=== PATIENT | female | born 1955 | race Caucasian/White ===

== ENCOUNTER 2017-02-12 19:58 | Emergency (ER) | payer BC, MEDICARE ==
[2017-02-12 20:13] VITALS: BP 120/71
--- NOTE | 2017-02-12 20:28 | EDM.PDOC ---
ED HPI GENERAL MEDICAL PROBLEM - General Chief Complaint: Lower Extremity Injury/Pain Stated Complaint: Foot pain Time Seen by Provider: 02/12/17 20:20 Source of Information: Reports: Patient, RN Notes Reviewed History Limitations: Reports: No Limitations - History of Present Illness INITIAL COMMENTS - FREE TEXT/NARRATIVE: 61 year old female presents to the ED with pain, bruising, and swelling to the lateral aspect of her right foot. The pain started after she rolled her ankle earlier today. She has pain with bearing weight. No numbness or tingling. No open skin wounds. Treatments RUBBER TUBING SPLICER: Reports: NSAIDS Right Feet Pain Score (Numeric/FACES): 2 - Related Data Allergies Allergy/AdvReac Type Severity Reaction Status Date / Time codeine Allergy Chest Verified 02/12/17 20:13 Presssure adhesive tape Allergy Itching Uncoded 02/12/17 20:13 novocaine Allergy Swelling Uncoded 02/12/17 20:13 Home Meds: Home Meds Atenolol. 1 tab PO DAILY 03/10/14 [History] Diovan. 1 tab PO DAILY 03/10/14 [History] Flexeril. 10 mg PO Q8HR PRN 03/10/14 [History] Gabapentin. 600 mg PO BID 03/10/14 [History] Omeprazole. 20 mg PO BID 03/10/14 [History] Sertraline. 1 tab PO DAILY 03/10/14 [History] Past Medical History HEENT History: Reports: Impaired Vision Cardiovascular History: Reports: Heart Murmur Other Cardiovascular History: heart cath as a baby Gastrointestinal History: Reports: GERD Other OB/BYN History: tubal ligation Other Musculoskeletal History: spinal stenosis and disc degeneration Psychiatric History: Reports: Addiction, Anxiety, Depression Immunologic History: Reports: Other (See Below) Other Immunologic History: Hep C - Past Surgical History HEENT Surgical History: Reports: Tonsillectomy Social & Family History - Family History Family Medical History: Noncontributory - Tobacco Use Smoking Status *Q: Never Smoker Second Hand Smoke Exposure: Yes - Caffeine Use Caffeine Use: Reports: None - Alcohol Use Days Per Week of Alcohol Use: 0 - Recreational Drug Use Recreational Drug Use: Yes Drug Use in Last 12 Months: Yes Recreational Drug Type: Reports: Marijuana/Hashish Recreational Drug Last Use: 2 days ago Review of Systems - Review of Systems Review Of Systems: See Below Musculoskeletal: Reports: Foot Pain, Joint Pain, Joint Swelling Skin: Reports: Bruising. Denies: Wound Neurological: Reports: No Symptoms. Denies: Numbness, Tingling ED EXAM, GENERAL - Physical Exam Exam: See Below Exam Limited By: No Limitations General Appearance: Alert, WD/WN, No Apparent Distress Extremities: Other (swelling and tenderness to lateral aspect of right foot. CMS intact. Ankle exam is normal.) Neurological: No Motor/Sensory Deficits Skin Exam: Warm, Dry, Intact, Other (bruising to right foot. ) Course - Vital Signs Last Recorded V/S: Last Vital Signs Temp 97.7 F 02/12/17 20:09 Pulse 75 02/12/17 20:09 Resp 16 02/12/17 20:09 BP 120/71 02/12/17 20:09 Pulse Ox 97 02/12/17 20:09 - Orders/Labs/Meds Orders: Active Orders 24 hr Category Date Time Status Foot Comp Min 3V Rt [CR] Stat Exams 02/12/17 20:27 Ordered - Re-Assessments/Exams Free Text/Narrative Re-Assessment/Exam: X-ray reveals non-displaced fracture to distal shaft of the 5th metatarsal. Patient will be placed in a walking boot and crutches with instructions to remain non-weight bearing. We have no ortho coverage. She can follow-up with ortho next week. Tramadol 50mg tabs, 1-2 tabs every 4-6 hours PRN for pain, #30 sent to [facility]. Departure - Departure Time of Disposition: 20:54 Disposition: Home, Self-Care 01 Condition: Good Clinical Impression: Metatarsal stress fracture of right foot Qualifiers: Encounter type: initial encounter Qualified Code(s): M84.374A - Stress fracture , right foot, initial encounter for fracture - Discharge Information Instructions: Metatarsal Fracture Referrals: Mayra Nesbitt MD [Primary Care Provider] - Forms: ED Department Discharge Additional Instructions: Walking boot at all times, only remove to shower Rest, ice and elevate No weight bearing, use crutches Tramadol 1-2 tabs every 4-6 hours as needed for pain Follow-up with one of our orthopedic surgeons next week, call their offices to schedule 1. Dr. Grullon [phone] Brizuela [phone] - My Orders Last 24 Hours: My Active Orders 02/12/17 20:27 Foot Comp Min 3V Rt [CR] Stat - Assessment/Plan Last 24 Hours: My Active Orders 02/12/17 20:27 Foot Comp Min 3V Rt [CR] Stat
--- NOTE | 2017-02-13 08:04 | CR ---
Right foot: Four views of the right foot were obtained. Oblique fracture identified within the distal shaft of the right fifth metatarsal. Alignment is close to anatomic. Small plantar spur is seen. No additional fracture or other abnormality is appreciated. Impression: 1. Fifth metatarsal fracture. 2. Small plantar spur. Diagnostic code #3
== END 2017-02-12 21:10 | disposition home or self-care (01) ==
LOC: JD.ED 19:58
DX: M84.374A Stress fracture, right foot, initial encounter for fracture (principal); K21.9 Gastro-esophageal reflux disease without esophagitis; F41.9 Anxiety disorder, unspecified; F32.9 Major depressive disorder, single episode, unspecified; Z98.890 Other specified postprocedural states; Z98.51 Tubal ligation status; Z79.899 Other long term (current) drug therapy; Z88.5 Allergy status to narcotic agent; Z88.6 Allergy status to analgesic agent; X50.9XXA Other and unspecified overexertion or strenuous movements or postures, initial encounter
CPT/HCPCS: 73630-26-RT; 73630-RT; 99283

== ENCOUNTER 2018-03-24 11:19 | Emergency (ER) | payer BC, MEDICARE ==
[2018-03-24] MEDS ORDERED: Acetaminophen 325 MG Tab PO ONE (11:38)
[2018-03-24] MEDS ORDERED: oxyCODONE 5 MG Tab PO ONE (11:38)
--- NOTE | 2018-03-24 11:44 | EDM.PDOC ---
ED HPI GENERAL MEDICAL PROBLEM - General Chief Complaint: Upper Extremity Injury/Pain Stated Complaint: WRIST INJURY FROM FALL Time Seen by Provider: 03/24/18 11:32 Source of Information: Reports: Patient History Limitations: Reports: No Limitations - History of Present Illness INITIAL COMMENTS - FREE TEXT/NARRATIVE: 62 y F patient presents with left wrist pain. Just prior to presentation she was walking backwards with her arm extended and thumb out, fell then broke her fall with the left hand. [place]ison immediate left wrist and thumb pain, moderate to severe intensity, worse with movement and palpation, better with rest. Left Wrist Pain Score (Numeric/FACES): 1 - Related Data Allergies Allergy/AdvReac Type Severity Reaction Status Date / Time codeine Allergy Chest Verified 02/12/17 20:13 Presssure adhesive tape Allergy Itching Uncoded 02/12/17 20:13 novocaine Allergy Swelling Uncoded 02/12/17 20:13 Home Meds: Home Meds Atenolol. 1 tab PO DAILY 03/10/14 [History] Flexeril. 10 mg PO Q8HR PRN 03/10/14 [History] Gabapentin. 600 mg PO BID 03/10/14 [History] Omeprazole. 20 mg PO BID 03/10/14 [History] Sertraline. 50 mg PO DAILY 03/10/14 [History] buPROPion [Wellbutrin] 75 mg PO DAILY 03/24/18 [History] oxyCODONE 5 mg PO QID PRN #15 tab 03/24/18 [Rx] Past Medical History HEENT History: Reports: Impaired Vision Cardiovascular History: Reports: Heart Murmur Other Cardiovascular History: heart cath as a baby Gastrointestinal History: Reports: GERD Other MANAGER RESPIRATORY History: tubal ligation Other Musculoskeletal History: spinal stenosis and disc degeneration Psychiatric History: Reports: Addiction, Anxiety, Depression Immunologic History: Reports: Other (See Below) Other Immunologic History: Hep C - Past Surgical History HEENT Surgical History: Reports: Tonsillectomy Social & Family History - Family History Family Medical History: Noncontributory - Tobacco Use Smoking Status *Q: Never Smoker - Caffeine Use Caffeine Use: Reports: Soda, Tea - Recreational Drug Use Recreational Drug Type: Reports: Marijuana/Hashish Other Recreational Drug Type: last used last noc-uses daily Review of Systems - Review of Systems Review Of Systems: See Below Constitutional: Reports: No Symptoms Eyes: Reports: No Symptoms Mouth/Throat: Reports: No Symptoms Respiratory: Reports: No Symptoms Cardiovascular: Reports: No Symptoms GI/Abdominal: Reports: No Symptoms Musculoskeletal: Reports: Other (left wrist pain) Skin: Reports: No Symptoms Neurological: Reports: No Symptoms Psychiatric: Reports: No Symptoms ED EXAM, GENERAL - Physical Exam Exam: See Below Exam Limited By: No Limitations General Appearance: Alert, No Apparent Distress Respiratory/Chest: No Respiratory Distress, Lungs Clear Cardiovascular: Normal Peripheral Pulses, Regular Rate, Rhythm GI/Abdominal: Soft, Non-Tender Back Exam: Normal Inspection, Full Range of Motion, Other (Midline cervical thoracic or lumbar spinal tenderness palpation) Extremities: Other (Left hand and wrist: TTP in the anatomical snuff box, good cap refill distally, sensation intact in all dermatomes. ) Neurological: Alert, Oriented, CN II-XII Intact, Normal Cognition, No Motor/ Sensory Deficits Skin Exam: Warm, Dry, Intact Course - Vital Signs Last Recorded V/S: Last Vital Signs Temp 36.1 C 03/24/18 13:19 Pulse 58 L 03/24/18 13:19 Resp 18 03/24/18 13:19 BP 158/86 H 03/24/18 13:19 Pulse Ox 98 03/24/18 13:19 - Orders/Labs/Meds Orders: Active Orders 24 hr Category Date Time Status Hand 2V Lt [CR] Stat Exams 03/24/18 11:37 Taken Wrist Comp Min 3V Lt [CR] Stat Exams 03/24/18 11:37 Taken Meds: Medications Discontinued Medications Generic Name Dose Route Start Last Admin Trade Name Daly PRN Reason Stop Dose Admin Acetaminophen 975 mg 03/24/18 11:38 03/24/18 12:10 Tylenol PO 03/24/18 11:39 Not Given NOW ONE Oxycodone HCl 5 mg 03/24/18 11:38 03/24/18 12:08 Oxycodone PO 03/24/18 11:39 5 mg ONETIME ONE Administration - Re-Assessments/Exams Free Text/Narrative Re-Assessment/Exam: 03/24/18 62-year-old female presenting [facility] Plain films by my interpretation show no fracture of the scaphoid or other carpal bones. She is not tender along the radius at all so no dedicated films were obtained. The patient persisted to be tender in the anatomic snuffbox. Therefore she was placed in a thumb spica splint and directed follow-up with Dr. kaylah Alvarez machine stone polisher apprentice orthopedic surgeon for repeat films in 7-10 days. Patient was advised that if she does have a scaphoid fracture there is some risk of nonunion/malunion and in worst-case nurse necrosis of the bone. Is for this reason that she is being immobilized in a thumb spica splint. If at anytime she has signs concerning for compartment syndrome she knows to return. Given return precautions. Discharged home in good condition. So given a prescription for a small amount of oxycodone for breakthrough pain. Departure - Departure Time of Disposition: 12:47 Disposition: Refer to Observation Condition: Good Clinical Impression: Wrist pain Qualifiers: Laterality: left Qualified Code(s): M25.532 - Pain in left wrist - Discharge Information *PRESCRIPTION DRUG MONITORING PROGRAM REVIEWED*: No *COPY OF PRESCRIPTION DRUG MONITORING REPORT IN PATIENT BERT: No Prescriptions: oxyCODONE 5 mg PO QID PRN #15 tab PRN Reason: Pain Instructions: Wrist Pain, Adult, [id number] Referrals: Mayra Nesbitt MD [Primary Care Provider] - Forms: ED Department Discharge Additional Instructions: You were seen today for left wrist pain after a fall. At this time there is no obvious fracture on your xray. Follow up with Dr Grullon in 7-10 days for repeat xrays to see if there is a fracture that we cannot see today. His office number is [phone]. Return to the ED if you have any numbness or discoloration of your fingertips or you have severe pain that will ntoimprove. - My Orders Last 24 Hours: My Active Orders 03/24/18 11:37 Hand 2V Lt [CR] Stat Wrist Comp Min 3V Lt [CR] Stat - Assessment/Plan Last 24 Hours: My Active Orders 03/24/18 11:37 Hand 2V Lt [CR] Stat Wrist Comp Min 3V Lt [CR] Stat
[2018-03-24 13:20] VITALS: BP 158/86
--- NOTE | 2018-03-25 06:45 | CR ---
Left hand: Two views of the left hand were obtained. Comparison: No prior left hand exam. Joint spaces are preserved. No fracture, dislocation or other bony abnormality is seen. Impression: 1. No abnormality is appreciated on two-view left hand exam. Diagnostic code #1
--- NOTE | 2018-03-25 06:45 | CR ---
Left wrist: Four views of the left wrist were obtained. Comparison: No prior wrist exam. Joint spaces are preserved. Slight cystic change is noted within the distal navicular bone which is felt to be incidental. No fracture, dislocation or other bony abnormality is seen. Impression: 1. Slight cystic change. No additional abnormality is appreciated on left wrist exam. Diagnostic code #2
== END 2018-03-24 13:23 | disposition other institution (70) ==
LOC: JD.ED 11:19
DX: M25.532 Pain in left wrist (principal); Z88.5 Allergy status to narcotic agent; Z91.09 Other allergy status, other than to drugs and biological substances; W19.XXXA Unspecified fall, initial encounter
CPT/HCPCS: 29125; 73110; 73120; 99283; A9270

== ENCOUNTER 2019-03-29 06:56 | Day surgery (SDC) | payer BC, MEDICARE ==
[~2019-03-29 06:56] MED LIST: Lidocaine 1%/Sod Bicarbonate in NS 8.4% 1 ML Syringe IDERM PRN; Sodium Chloride 0.9% 10 ML Syringe FLUSH PRN
--- NOTE | 2019-03-29 08:08 | PCM.PREANE ---
Preanesthetic Assessment - Procedure Proposed Procedure: EGD - Anesthesia/Transfusion/Family Hx Anesthesia History: Prior Anesthesia Without Reaction Family History of Anesthesia Reaction: Yes (nausea/vomitting in mother) Transfusion History: Prior Transfusion Without Reaction Intubation History: Unknown - Review of Systems General: Other (chronic cough ) Pulmonary: Cough Cardiovascular: No Symptoms Gastrointestinal: No Symptoms Neurological: No Symptoms Other: Reports: Depression, Anxiety - Physical Assessment NPO Status Date: 03/28/19 NPO Status Time: 22:30 Height: 1.63 m Weight: 63.3 kg ASA Class: 2 Mental Status: Alert & Oriented x3 Airway Class: Mallampati = 1 Dentition: Reports: Normal Dentition Thyro-Mental Finger Breadths: 3 Mouth Opening Finger Breadths: 5 ROM/Head Extension: Full Lungs: Clear to Auscultation, Normal Respiratory Effort Cardiovascular: Regular Rate, Regular Rhythm - Allergies Allergies/Adverse Reactions: Allergies Allergy/AdvReac Type Severity Reaction Status Date / Time adhesive tape Allergy Itching Verified 03/28/19 16:54 codeine Allergy Chest Verified 03/28/19 16:54 Presssure procaine [From Novocain] Allergy Swelling Verified 03/28/19 16:54 - Blood Blood Available: No - Anesthesia Plan Pre-Op Medication Ordered: None - Acknowledgements Anesthesia Type Planned: MAC Pt an Appropriate Candidate for the Planned Anesthesia: Yes Alternatives and Risks of Anesthesia Discussed w Pt/Guardian: Yes Pt/Guardian Understands and Agrees with Anesthesia Plan: Yes PreAnesthesia Questionnaire HEENT History: Reports: Impaired Vision Cardiovascular History: Reports: Heart Murmur, Hypertension Other Cardiovascular History: heart cath as a baby Respiratory History: Reports: None Gastrointestinal History: Reports: Cirrhosis, Colon Polyp, Gastritis, GERD, Hemorrhoids, Hepatitis Other Gastrointestinal History: esophageal varices, hepatic encephalopathy, Hep C, cirrohcis, gastritis, portal hypertensive gastropathy, abdominal pain Genitourinary History: Reports: None Other OB/BYN History: tubal ligation, , cervical cancern Musculoskeletal History: Reports: Back Pain, Chronic, Neck Pain, Chronic Other Musculoskeletal History: spinal stenosis and lumbar disc degeneration, myofascial pain Neurological History: Reports: Other (See Below) Other Neuro History: radiculopathy, lumbar degenerative disc disease Psychiatric History: Reports: Addiction, Anxiety, Depression Endocrine/Metabolic History: Reports: None Hematologic History: Reports: None Immunologic History: Reports: Other (See Below) Other Immunologic History: Hep C Oncologic (Cancer) History: Reports: Malignant Melanoma Dermatologic History: Reports: Other (See Below) Other Dermatologic History: right skin cancer excision - Infectious Disease History Infectious Disease History: Reports: Chicken Pox, Hepatitis C, Measles - Past Surgical History Head Surgeries/Procedures: Reports: None HEENT Surgical History: Reports: Adenoidectomy, Tonsillectomy Cardiovascular Surgical History: Reports: None Respiratory Surgical History: Reports: None GI Surgical History: Reports: Colonoscopy, EGD, Hernia Repair/Other Female Surgical History: Reports: Cervical Cryotherapy, Tubal Ligation Male Surgical History: Reports: None Endocrine Surgical History: Reports: None Neurological Surgical History: Reports: None Musculoskeletal Surgical History: Reports: Carpal Tunnel Oncologic Surgical History: Reports: Other (See Below) Other Oncologic Surgeries/Procedures: facial surgery to remove melanoma Dermatological Surgical History: Reports: None - SUBSTANCE USE Smoking Status *Q: Former Smoker Recreational Drug Use History: Yes Recreational Drug Type: Reports: Marijuana/Hashish - HOME MEDS Home Medications: Home Meds Atenolol 25 mg PO DAILY 03/28/19 [History] Lidocaine 5% [Lidoderm 5%] 1 dose TOP DAILY 03/28/19 [History] Polyethylene Glycol 3350 [MiraLAX] 17 gm PO DAILY 03/28/19 [History] Sertraline HCl 50 mg PO DAILY 03/28/19 [History] buPROPion HCl [Wellbutrin SR] 150 mg PO DAILY 03/28/19 [History] - CURRENT (IN HOUSE) MEDS Current Meds: Current Medications Lactated Ringer's (Ringers, Lactated) 1,000 mls @ 125 mls/hr IV ASDIRECTED GRICELDA Stop: 03/29/19 23:00 Lidocaine/Sodium Bicarbonate (Buffered Lidocaine 1% In Ns 8.4%) 0.25 ml IDERM ONETIME PRN PRN Reason: Prior to IV Start Stop: 03/29/19 18:00 Sodium Chloride (Saline Flush) 10 ml FLUSH ASDIRECTED PRN PRN Reason: Keep Vein Open Stop: 03/29/19 23:00
[2019-03-29] MEDS: Lactated Ringers 1,000 ML IV SCH (08:10)
[2019-03-29] MEDS ORDERED: Lidocaine 1% 4 ML ONE (09:06)
[2019-03-29] MEDS ORDERED: Propofol 200 MG/20 ML SDV ONE (09:06)
[2019-03-29] MEDS ORDERED: Ketamine 500 mg/10 ML MDV ONE (09:15)
--- NOTE | 2019-03-29 09:23 | PCM.OPNOTE ---
- General Post-Op/Procedure Note Date of Surgery/Procedure: 03/29/19 Operative Procedure(s): EGD with biopsy (colonoscopy was canceled because of poor prep) Pre Op Diagnosis: hx of chirrhosis and hepatitis C Post-Op Diagnosis: Same Anesthesia Technique: MAC Primary Surgeon: Perfecto Masters EBL in mLs: 0 Complications: None Condition: Good
[2019-03-29 10:45] VITALS: BP 153/89; PULSE 61
--- NOTE | 2019-03-30 08:19 | OR ---
DATE OF OPERATION: 03/29/2019 SURGEON: Perfecto Masters MD PREOPERATIVE DIAGNOSIS: History of hepatitis C with cirrhosis. POSTOPERATIVE DIAGNOSIS: History of hepatitis C with cirrhosis. OPERATION PERFORMED: Esophagogastroduodenoscopy with biopsy. FINDINGS: Hyperemia of the stomach and the fundus showed some engorgement of the stomach suggestive of watermelon stomach. Biopsies were taken of the antrum and 2nd portion of the duodenum. Duodenal bulb and pyloric channel were unremarkable. The GE junction was at 40 cm, did not show any acute problem. Presence of varices was noted. Rest of the esophagus was unremarkable. ANESTHESIA: Done under IV sedation. DESCRIPTION OF PROCEDURE: The patient was taken to the operating room, placed in a supine position, connected to monitoring equipment, given IV sedation, placed in left lateral position. Bite block was inserted and video Olympus gastroscope placed in the posterior oropharynx under direct vision threaded past the cricopharyngeus down the esophagus, into the stomach. The stomach was insufflated, and the scope passed through the pylorus to the second portion of the duodenum. It was then slowly withdrawn showing normal 2nd portion of the duodenum, duodenal bulb, pyloric channel. Antrum showed redness, which actually extended throughout the stomach and engorgement of the fundus and some of the body of the stomach that had the appearance of a watermelon stomach. Biopsies of the antrum were taken. J-maneuver was performed. The hiatus was intact. This scope was withdrawn at the GE junction showing no acute problem. Presence of varices was noted for short distance up the esophagus. Rest of the esophagus was unremarkable. The patient tolerated the procedure. Specimen sent to Pathology in a labeled container. The patient was sent to recovery room in a stable condition and will be followed up in the clinic. ESTIMATED BLOOD LOSS: MMODAL /[id number]
== END 2019-03-29 10:21 | disposition home or self-care (01) ==
LOC: JD.SDS 06:56
PROVIDERS: ATTEND Surgery
DX: K74.60 Unspecified cirrhosis of liver (principal); I10 Essential (primary) hypertension; K21.9 Gastro-esophageal reflux disease without esophagitis; F32.9 Major depressive disorder, single episode, unspecified; Z86.19 Personal history of other infectious and parasitic diseases; Z79.899 Other long term (current) drug therapy; Z88.5 Allergy status to narcotic agent; Z88.4 Allergy status to anesthetic agent; Z91.048 Other nonmedicinal substance allergy status; Z87.891 Personal history of nicotine dependence
CPT/HCPCS: 00731; J2001; J2704; J7120